=== PATIENT | male | born 1955 | race Caucasian/White ===

== ENCOUNTER 2021-03-17 08:17 | Emergency (ER) | payer MEDICARE, SELFPAY ==
[2021-03-17 08:18] VITALS: BP 165/111; PULSE 97; RESP 20; TEMP 37; O2SAT 97; BMI 31.6
--- NOTE | 2021-03-17 08:28 | ECG_ITS ---
APPROVED REPORT Exam: Resting ECG HR:116 bpm ECG Measurements Heart Rate 116 AXES QRSd 70 QRS 19 QT 412 T -80 QTc 572 Conclusion Atrial fibrillation with rapid ventricular response with premature ventricular or aberrantly conducted complexes Nonspecific ST and T wave abnormality, probably digitalis effect Abnormal ECG Electronically signed by : Cornell Del Rio MD 03/18/2021 17:36:43
--- NOTE | 2021-03-17 08:29 | HMH.EDGENADL ---
ED Disposition Clinical Impression: Rapid atrial fibrillation Rotator cuff injury Qualifiers: Encounter type: sequela Laterality: left Qualified Code(s): S46.002S - Unspecified injury of muscle(s) and tendon(s) of the rotator cuff of left shoulder, sequela Disposition: Home, Self-Care Condition on Discharge: Good Instructions: How to Use a Sling, DI for Rotator Cuff Injury, DI for Atrial Fibrillation Additional Instructions: Wear sling until seen by orthopedics. Follow-up with orthopedics, Dr. Dickson, call for appointment. Woolford as needed for pain. Toprol-XL for control of your heart rate/atrial fibrillation. Follow-up with Dr. Blanco in the office, call for appointment. Additional instructions for CONTROLLED SUBSTANCES: You have been prescribed a medication that is a controlled substance. Controlled substances include pain medications known as opiates and sedative nerve medications known as benzodiazepines. Tramadol, fioricet, and gabapentin are also controlled substances. Some common opiates include: Codeine (such as Tylenol #3) Hydrocodone (Vicodin, Lortab, Lorcet, Woolford) Oxycodone (Percocet, Percodan, Oxycodone, Oxy IR) Some common benzodiazepines include: Diazepam (Valium) Lorazepam (Ativan) Alprazolam (Xanax) Clonazepam (Klonopin) Oxazepam (Serax) All of these controlled substances are highly addictive and frequently abused. Misuse can and frequently does lead to addiction as well as overdose and . Medication should be stored in a locked cabinet or other secure storage unit. Do not store the medication in a motor vehicle. Short term supplies, 3 days or less, are prescribed because of the highly addictive nature of the medication. Any of the controlled substance medication NOT taken should be disposed of properly and NOT SAVED. The recommended method of disposing of unused medications is: Place the medicines in a sealable plastic bag. If the medicine is a solid, crush it or add water to dissolve it. Add something undesirable (cat litter, coffee grounds, etc.) Dispose of sealed bag in household trash Do not flush or pour unused medicines down a sink or drain. Controlled substances should not be shared, given away or sold. Because of the addictive nature and frequent abuse, these medications are sometimes stolen. These medications should be kept in a safe place where they cannot be stolen. Do not keep them in your car or purse. Lost or stolen prescriptions for controlled substances WILL NOT BE REFILLED in this emergency department, regardless of whether a police report was filed. Prescriptions: Hydrocod/Acet 5/325 mg [Woolford 5/325mg tablet] 1 tab PO Q6HP PRN #10 tab PRN Reason: Pain Transmission Status: Received by [email or web address] Metoprolol Succinate [Toprol XL 25mg tablet] 25 mg PO HS #30 tab Transmission Status: Received by [email or web address] Referrals: Jeff Back MD [Primary Care Provider] - - Critical Care Critical Care Time: No Attestation: On , the high probability of a clinically significant, sudden or life threatening deterioration of the following system(s) required my full and direct attention, intervention and personal management. The time I documented below is in addition to time spent performing reported procedures but includes the following listed in this critical care notation. Medical Decision Making - Marciano Inquiry Pt receiving controlled substance: Yes Marciano was queried for this patient: Yes Risks and benefits of using a controlled substance: were discussed with pt by me Vital Signs: 03/17/21 08:18 03/17/21 08:50 03/17/21 09:15 Temperature 98.6 F Temperature Source Oral Pulse Rate 90 82 Pulse Rate [Right] 97 H Respiratory Rate 20 21 19 Blood Pressure 164/102 H 123/87 Blood Pressure [Right Radial Artery] 165/111 H Blood Pressure Mean [Right Radial Artery] 129 02 Sat by Pulse Oximetry 97 98 96 O
--- NOTE | 2021-03-17 08:43 | XR_ITS ---
PROCEDURE INFORMATION: Exam: XR Left Shoulder Exam date and time: 03/17/2021 8:43 AM Age: 65 years old Clinical indication: Pain; Shoulder; Left TECHNIQUE: Imaging protocol: XR Left shoulder. Views: 2 or more views. COMPARISON: CR XR CHEST 2V 03/17/2021 8:54 AM FINDINGS: Bones/joints: Visualized portions of the clavicle normal. Moderate degenerative changes of the acromioclavicular joint. Glenohumeral joint normal; Scapula normal; Visualized ribs and visualized pulmonary parenchyma normal; Coracoid process normal Soft tissues: Normal. IMPRESSION: Moderate degenerative changes of the acromioclavicular joint. Question mild loss of the subacromial space height. Correlate clinically regarding rotator cuff pathology.
--- NOTE | 2021-03-17 08:44 | XR_ITS ---
PROCEDURE INFORMATION: Exam: XR Chest Exam date and time: 03/17/2021 8:44 AM Age: 65 years old Clinical indication: Pain; Other: A fib; Additional info: Rapid afib TECHNIQUE: Imaging protocol: XR of the chest. Views: 2 views. COMPARISON: CR CXR1 CHEST-PORTABLE 05/21/2015 11:34 AM FINDINGS: Lungs: Question minimal basilar atelectasis. Lungs are otherwise well aerated. Pleural spaces: Unremarkable. No pleural effusion. No pneumothorax. Heart/Mediastinum: Unremarkable. No cardiomegaly. Bones/joints: Unremarkable. IMPRESSION: Question minimal basilar atelectasis. Lungs are otherwise well aerated.
[2021-03-17 08:50] VITALS: BP 164/102; PULSE 90; RESP 21; O2SAT 98
[2021-03-17 08:59] LABS: Basophils # 0.1 K/mm3 (0-0.2); Basophils % 0.6 % (0.1-2.0); Eosinophils # 0.2 K/mm3 (0.0-0.4); Eosinophils % 1.7 % (0.1-12.0); Hematocrit 50.2 % (42.0-52.0); Hemoglobin 16.6 g/dL (14.1-18.0); Lymphocytes # 1.7 K/mm3 (0.7-4.5); Lymphocytes % 17.4 % (10-50); Mean Corpuscular Hemoglobin 30.2 pg (27.0-31.2); Mean Corpuscular Volume 91.6 fl (80-94); Mean Platelet Volume 8.6 fl (7.4-10.4); Monocytes # 0.7 K/mm3 (0.1-1.0); Monocytes % 7.6 % (1.7-9.3); Neutrophils % 72.6 % (37.0-80.0); Platelet Count 303 K/mm3 (142-424); Red Blood Count 5.48 M/mm3 (4.60-6.20); Red Cell Distribution Width 13.9 % (11.5-17.5); White Blood Count 9.6 K/mm3 (4.8-10.8)
[2021-03-17 09:02] LABS: Chloride 102 mmol/L (98-107); Potassium 4.2 mmoL/L (3.5-5.1); Sodium 137 mmol/L (136-145)
[2021-03-17 09:05] LABS: Blood Urea Nitrogen 15 mg/dl (9-20); Creatinine Clearance Estimated 112 mL/min (50-200); Estimated Glomerular Filt Rate 75 ml/min (>60); GFR (African American) 90 ML/MIN (>60)
[2021-03-17 09:06] LABS: Anion Gap 14.2 mEq/L (5-15); Calcium 9.2 mg/dl (8.4-10.2); Carbon Dioxide 25 mmol/L (22.0-30.0); Glucose 116 mg/dl (74-100)
[2021-03-17 09:15] VITALS: BP 123/87; PULSE 82; RESP 19; O2SAT 96
[2021-03-17 09:19] LABS: Troponin I < 0.01 ng/ml (0.00-0.034)
--- NOTE | 2021-03-17 09:40 | PC.NURSE ---
Called [facility] exchange to speak to Dr Barnes. They are paging him to call [facility] ER
[2021-03-17 10:05] VITALS: BP 126/81; PULSE 75; RESP 18; O2SAT 96
--- NOTE | 2021-03-17 10:06 | PC.NURSE ---
Dr Plaza is consulting with Dr Barnes by phone
[2021-03-17 10:46] VITALS: BP 144/91; PULSE 81; RESP 20; TEMP 37; O2SAT 95
== END 2021-03-17 10:49 | disposition home or self-care (01) ==
PROVIDERS: Emergency Provider Emergency Medicine; PCP Family Medicine
DX: S46.002A Unspecified injury of muscle(s) and tendon(s) of the rotator cuff of left shoulder, initial encounter (principal); I48.20 Chronic atrial fibrillation, unspecified; R00.2 Palpitations; Z96.641 Presence of right artificial hip joint; Z79.899 Other long term (current) drug therapy
CPT/HCPCS: 71046; 73030; 80048; 84484; 85025; 93005; 96374; 96375; 99283; J2405

== ENCOUNTER 2023-09-27 14:25 | Outpatient (CLI) | payer MEDICARE, SELFPAY ==
--- NOTE | 2023-09-27 | CA_ITS ---
FINAL REPORT TECHNIQUE: Color Doppler, duplex Doppler and saeed scale sonography of the bilateral neck arterial vasculature was performed. Velocities were measured in the carotid arteries. Stenosis evaluation based on the validated velocity criteria. CLINICAL HISTORY: ATRIAL FIBRILLATION, TINNITUS COMPARISON: None FINDINGS: The peak systolic velocity of the right common carotid artery is 77 cm/s. The peak systolic velocity of the right internal carotid artery is 63 cm/s and end diastolic velocity 24 cm/s. The ICA/CCA ratio is 1.03. A mild amount of plaque is present. The right external carotid artery is patent. The right vertebral artery is patent with antegrade flow. The peak systolic velocity of the left common carotid artery is 61 cm/s. The peak systolic velocity of the left internal carotid artery is 65 cm/s and end diastolic velocity 22 cm/s. The ICA/CCA ratio is 1.07. A mild amount of plaque is present. The left external carotid artery is patent.The left vertebral artery is patent with antegrade flow. IMPRESSION: Less than 50% bilateral carotid stenoses. Bilateral patent vertebral arteries with antegrade flow. If indicated, CTA or MRA could further evaluate. Reviewed, Interpreted and Dictated by Oumar Galvin III, MD Transcribed by Mehreen Peres Authenticated and [facility]
== END 2023-09-27 23:59 ==
LOC: RT 14:25
PROVIDERS: PCP Family Medicine; Visit Provider Nurse Practitioner Family
DX: I48.91 Unspecified atrial fibrillation (principal); H93.19 Tinnitus, unspecified ear; I65.23 Occlusion and stenosis of bilateral carotid arteries
CPT/HCPCS: 93880

== ENCOUNTER → 2024-02-16 07:15 | Day surgery (SDC) | payer MEDICARE, SELFPAY ==
[2024-02-13 16:15] VITALS: BMI 31.6
[2024-02-16] VITALS (7 sets, daily range): BP systolic 108–148; BP diastolic 61–101; PULSE 60–104; RESP 16–18; TEMP 36.3–36.4; O2SAT 95–99
[2024-02-16] MEDS: LACTATED RINGERS 1000ML 1,000 ML 25 ML IV (07:41)
--- NOTE | 2024-02-16 08:11 | EXP.ANES.CKL ---
[facility] Disclaimer: The information contained in this section may have been updated after the patient was seen, as this information can be updated by other users. Medical History (Updated 02/16/24 @ 07:33 by Aretha Zarate RN) History of cardioversion Atrial fibrillation Hyperlipidemia Hypertension Surgical History (Updated 02/16/24 @ 07:44 by Aretha Zarate RN) H/O cardiac radiofrequency ablation History of hernia repair History of colonoscopy S/P ACL repair History of left hip replacement Family History Other No significant family history Social History Smoking Status: Never smoker alcohol intake: never substance use type: denies use current occupational status: employed and retired Travel in the last 8 weeks: None [facility] Anesthesia Checklist Patient Identification Patient Identification: Arm Band, Family and Verbal (Name & ) Structural Data Admitted From: Home Planned Operative Procedure/s: Colonoscopy Consent for Planned Operative Procedure(s) Verified: Yes Verified Documents: Surgical Consent and History and Physical NPO Status Verified Time NPO: 20:00 Chart Verification Results Verified: CBC, BMP, ECG and Chest Xray Additional verifications Patient : No Anesthesia Reactions: No Previous Colonoscopy: Yes Cardiovascular Assessment Pulse Rhythm: Irregular Peripheral Edema: No Airway Assessment Mallampati Score:: Class II C-Spine Mobility Assessed: Yes (FROM) TMJ Mobility Assessed: Yes Dentition: Good Dentition (Nothing loose per pt.) Neurological Assessment Level of Consciousness: Awake, Alert, Appropriate and Follows Commands Hx Seizures: No Numbness or tingling in extremities: No Anesthesia Plan Anesthesia Risk discussed: Yes Anesthesia Plan: Verified ASA Class: III Anesthesia Type: MAC
--- NOTE | 2024-02-16 09:17 | P.PCN_ITS ---
Procedure: Date: 02/16/24 Patient Date of :: 1955 Procedure Performed:: Total colonoscopy to ileocecal valve with multiple polypectomy using a variety of technique . Indications:: Patient is a 68-year-old male. He apparently had previously undergone colonoscopy sometime ago. Exact details are unknown. He had recent Cologuard testing which was positive. . Performing Provider:: Oumar Hernandez MD Referring Provider:: Keven Walker MD . Sedation:: MAC sedation . Procedure:: Patient history was obtained and appropriate physical examination was performed. Patient's medications and allergies were reviewed. Informed consent was obtained after explaining the benefits, alternatives, and risks of the procedure including, but not limited to, bleeding, perforation, missed lesions, and adverse reaction to anesthesia medications. Patient was transported to endoscopy procedure room. Patient was connected to monitoring devices. Throughout the procedure the patient's blood pressure, pulse, and oxygen saturations were monitored continuously. Patient identification and planned procedure were verified by the staff. Patient was positioned in lateral decubitus position. Digital anorectal exam wa s performed. Variable stiffness Olympus colonoscope was inserted and advanced under direct visualization to the cecum. Adequacy of the colonic preparation was noted. The colonoscope was advanced a short distance into the ileocecal valve. The colonoscope was then slowly withdrawn while carefully examining the color, texture, anatomy, and integrity of the mucosoa circumferentially. Within the rectum retroflexion was performed. Colonoscope was then withdrawn. . Impression: Colonic preparation was fair as there was some particulate opaque stool requiring high-volume trans colonoscopic irrigation and suctioning. There was some stool adherent to the álvarez. In the ascending colon just distal to the hepatic flexure there was an adenomatous appearing polyp removed with cold snare. At the hepatic flexure there was a small polyp removed with cold snare. Transverse colon there was a sessile small polyp removed with cold snare. Splenic flexure there was a sessile small polyp removed with cold snare. In the descending colon there was a polyp removed with cold snare. In the sigmoid colon there were 4 polyps removed 3 of which were removed with cold snare and 1 with biopsy forceps. In the rectosigmoid region there was a rather large irregular adenomatous appearing polyp removed with hot snare. This required withdrawal of the colonoscope for retrieval. Tissue at the base of the polyp was removed with cold biopsy forceps. Limited amount of Nicki ink was injected at the polypectomy site to eileen this area. Within the rectum there was an adenomatous polyp removed with cold snare. There was another large rectal polyp removed with hot snare. This required withdrawal of the colonoscope for retrieval and then reinsertion. Retroflexion revealed no evidence of any pathologic hemorrhoids. . Findings:: Suboptimal prep Polyps as noted above. Total of 12 polyps removed. Most concerning is the rectosigmoid and rectal polyps removed with hot snare. . Recommendations:: Follow-up colonoscopy pending pathology. However given the likely large number of adenomatous polyps and suboptimal prep likely 1 or 2 years. Complications:: None immediately apparent Estimated blood obtained (mL): 2 Colonoscopy Component Colonoscopy Component Was a colonoscopy performed during today's procedure?: Yes Recommended follow up colonoscopy of at least 10 years?: No If no, follow up colonoscopy recommended in ___ years?: 2 Reason for not recommending >/= 10 yr follow-up interval?: See above
--- NOTE | 2024-02-16 09:25 | EXP.ANES.I ---
[facility] Anesthesia Record Part I Anesthesia Record I Intake, IV Amount: 300 Hydration: Adequate Estimated blood loss (mL): 1 Urine output (mL): 0 Blood Products used (#): none Blood Pressure: 108/62 SaO2: 95 Pulse Rate: 104 Airway Patency: Patent Respiratory Rate: 16 Temperature: 97.4 F Patient is:: Drowsy and Stable Stable to PACU at:: 09:25
--- NOTE | 2024-02-16 10:20 | SUR.PHASEII ---
0942 Assisting with dressing pt and noted that pt could barely stand. Sat pt in W/C, noted that wasn't using right arm. Performed neurological assessment. Noted Slight R mouth droop, weakness on R side, pupils round and reactive. Pt unable to answer any questions, only says yeah and giggles. 118/84, 78, 20,98% RA. 0985 Updated Tj Tai [employer] of changes and wants pt to ER. 0940 Pt already in W/C and took to ER and immediately taken into [facility] with report given to ER staff. at pt's side.
--- NOTE | 2024-02-16 11:46 | P.EN_ITS ---
According to the nursing staff in the postoperative area patient reportedly displayed signs consistent with possible left hemispheric stroke. He was therefore taken immediately to the emergency department for evaluation. He underwent thorough examination including CT head and neck with angiogram. There was concern from ER physician for possible left MCA branch thrombosis. Therefore arrangements were made for immediate transfer to [facility] via air ambulance for possible thrombectomy. Evidently, based on discussion and documentation by office staff, the patient had discontinued his Xarelto as well as his 81 mg aspirin without advice/input from his washer off or surgery office staff.
== END | disposition home or self-care (01) ==
PROVIDERS: PCP Family Medicine; Visit Provider Surgery
PROC: 0DJD8ZZ Inspection of Lower Intestinal Tract, Via Natural or Artificial Opening Endoscopic (ICD-10-PCS; principal; 2024-02-16 08:30)
DX: Z12.11 Encounter for screening for malignant neoplasm of colon (principal)
CPT/HCPCS: J2704; J7120

== ENCOUNTER 2024-02-16 10:03 | Emergency (ER) | payer MEDICARE, SELFPAY ==
--- NOTE | 2024-02-16 10:07 | PC.NURSE ---
DR TAM AT BEDSIDE
--- NOTE | 2024-02-16 10:08 | ECG_ITS ---
APPROVED REPORT Exam: Resting ECG HR:87 bpm ECG Measurements Heart Rate 87 AXES QRSd 94 QRS -51 QT 375 T 131 QTc 420 Conclusion A-fib Nonspecific T wave inversions Left axis deviation Electronically signed by : ISIAH TAM, 02/17/2024 15:20:59
--- NOTE | 2024-02-16 10:10 | CT_ITS ---
FINAL REPORT CLINICAL HISTORY: Right-sided deficits, HSS 13 FINDINGS: CT NECK ANGIO, WITHOUT AND WITH CONTRAST TECHNIQUE: Thin section axial CT with contrast with multiplanar 3D MIP reconstruction. NASCET criteria and technique was utilized during interpretation. Aortic arch: Arch shows no significant narrowing. Great vessel origins are widely patent. Right carotid: No significant stenosis is seen of the cervical common or internal carotid artery. Left carotid: No significant stenosis is seen of the cervical common or internal carotid artery. Vertebrals: The vertebral arteries are codominant. No significant stenosis is present. IMPRESSION: No significant stenosis of the cervical carotid arteries This study was performed using automated techniques to achieve radiation exposure as low as reasonably Reviewed, Interpreted and Dictated by Marcela Johnson MD Transcribed by Ayla Reynaga Authenticated and [facility]
--- NOTE | 2024-02-16 10:10 | CT_ITS ---
FINAL REPORT TECHNIQUE: Noncontrast exam This study was performed with techniques to keep radiation doses as low as reasonably achievable, (ALARA). Individualized dose reduction techniques using automated exposure control or adjustment of mA and/or kV according to the patient''s size were employed. CLINICAL HISTORY: Right-sided deficits, NIHSS 13 FINDINGS: Hypointensity in the posterior right temporal lobe is nonspecific, could represent chronic infarct or an area of edema. This would not correlate with a right sided neurologic deficit. Minimal chronic microvascular changes are identified. Ventricles are normal. There is no hemorrhage. No mass effect is seen. Bone windows show no evidence of fracture. IMPRESSION: No hemorrhage. 13 mm hypodensity right posterior temporal lobe, recommend further evaluation with MRI. Reviewed, Interpreted and Dictated by Marcela Johnson MD Transcribed by Ayla Reynaga Authenticated and . [facility]
--- NOTE | 2024-02-16 10:10 | CT_ITS ---
FINAL REPORT CLINICAL HISTORY: Right-sided deficits, NIHSS 13 FINDINGS: CTA HEAD TECHNIQUE: Thin section axial CT with contrast with 3D MIP reconstruction No aneurysm is seen. Major intracranial vessels are patent without significant stenosis. . IMPRESSION: Unremarkable This study was performed using automated techniques to achieve radiation exposure as low as reasonably achievable Reviewed, Interpreted and Dictated by Marcela Johnson MD Transcribed by Ayla Reynaga Authenticated and . [facility]
[2024-02-16 10:13] VITALS: PULSE 58; O2SAT 98
[2024-02-16 10:22] VITALS: BP 138/89; PULSE 82; RESP 20; TEMP 36.8; O2SAT 99; BMI 30.5
[2024-02-16 10:24] LABS: Basophils # 0.1 K/mm3 (0-0.2); Eosinophils # 0.1 K/mm3 (0.0-0.4); Eosinophils % 1.5 % (0.1-12.0); Hematocrit 51.3 % (42.0-52.0); Hemoglobin 17.1 g/dL (14.1-18.0); Lymphocytes # 1.2 K/mm3 (0.7-4.5); Lymphocytes % 13.9 % (10-50); Mean Corpuscular HGB Conc 33.3 g/dL (31.8-35.4); Mean Corpuscular Hemoglobin 31.5 pg (27.0-31.2); Mean Corpuscular Volume 94.5 fl (80-94); Monocytes # 0.5 K/mm3 (0.1-1.0); Monocytes % 5.3 % (1.7-9.3); Neutrophils # 6.8 K/mm3 (1.8-7.8); Neutrophils % 78.3 % (37.0-80.0); Platelet Count 293 K/mm3 (142-424); Red Blood Count 5.43 M/mm3 (4.60-6.20); White Blood Count 8.7 K/mm3 (4.8-10.8)
--- NOTE | 2024-02-16 10:24 | ED_ITS ---
Discharge Plan Disposition Patient Disposition: Xfer Short-Term Hosp Chief Complaint: Neuro Symptoms/Deficit Prescriptions Prescriptions: No Action Xarelto 20 mg tablet 20 mg PO DAILY Rx Instructions: must administer with evening meal diltiazem HCl 240 mg capsule,extended release 24 hr 240 mg PO DAILY aspirin 81 mg Tablet 81 mg PO DAILY Referrals Follow up/Referrals: Provider,Bernice, [Primary Care Provider] - See instructions Clinical Impressions Clinical Impression: Acute ischemic left MCA stroke Print Language Print Language: Ukrainian Discharge ED Provider: Mario Raines General Adult HPI General Stated complaint: STROKE LIKE SYMPTOMS Time Seen by Provider: 02/16/24 10:10 History of Present Illness HPI narrative: Please note that above description of symptoms, in this electronic medical record under categorization of recalled from ER triage doctor by RN are reflective of an initial nursing assessment, however, is not reflective of my full history and physical exam that was personally taken and clarified. Consequentially, this preceding description of symptoms, which may include the patient's categorized chief complaint in the EMR, do not reflect my personal clinical impression, and the ultimate description of history of present illness and patient stated complaints should be deferred to this section of the note. Unless stated otherwise or congruent with this section of the note, additional signs, symptoms, or incongruence should be interpreted as inaccurate with my clinical impression. Related Data Home Medications ?Medication ?Instructions ?Recorded ?Confirmed diltiazem HCl 240 mg capsule,24 240 mg PO DAILY 02/14/20 02/16/24 hr,extended release rivaroxaban 20 mg tablet (Xarelto) 20 mg PO DAILY 02/14/20 02/16/24 aspirin 81 mg tablet 81 mg PO DAILY 02/16/24 02/16/24 Allergies Allergy/AdvReac Type Severity Reaction Status Date / Time No Known Allergies Allergy Mild Verified 02/13/24 16:13 [NO KNOWN ALLERGIES] [facility] Disclaimer: The information contained in this section may have been updated after the patient was seen, as this information can be updated by other users. Medical History (Updated 02/16/24 @ 10:48 by Mario Raines MD) History of cardioversion Atrial fibrillation Hyperlipidemia Hypertension Surgical History (Updated 02/16/24 @ 07:44 by Arehta Zarate RN) H/O cardiac radiofrequency ablation History of hernia repair History of colonoscopy S/P ACL repair History of left hip replacement Family History Other No significant family history Social History (Updated 02/16/24 @ 08:12 by Amelia Tai CRNA) Smoking Status: Never smoker alcohol intake: never substance use type: denies use current occupational status: employed and retired Travel in the last 8 weeks: None ROS Obtained: Yes All systems reviewed & no additional complaints except as documented Physical Exam General General appearance: alert Head Head exam: atraumatic and normocephalic Eye Eye exam: Present normal appearance and PERRL; Absent EOMI (Right-sided gaze palsy, neglecting right visual field.) ENT ENT exam: Present mucous membranes moist Neck Neck exam: Present normal inspection, full ROM and trachea midline Respiratory Respiratory exam: Present normal lung sounds bilaterally; Absent respiratory distress, wheezes, stridor, accessory muscle use or prolonged expiratory phase Cardiovascular Cardiovascular exam: Present regular rate, irregular rhythm and other (Pulses equal symmetric in upper and lower extremities) Abdominal Exam Abdominal exam: Present soft; Absent distention, tenderness or pulsatile mass Extremities Exam Extremities exam: Absent edema Neurological Exam Neurological exam: Present alert, motor sensory deficit and other (Patient has NIH 17. Right-sided facial droop, right-sided gaze palsy and visual field cut, right upper extremity and right lower extremity weakness with drift cerebellar exam abnormal right extremities, extension, inattention, dysarthria and aphasia.); Absent oriented X3 (Dysarthric), CN II-XII intact or normal gait (Stumbles on right lower extremity) Skin Skin exam: Present warm and dry; Absent diaphoresis or erythema Medical Decision Making Medical Records Medical records reviewed: Yes I reviewed the patient's medical records. Marciano Inquiry Pt receiving controlled substance: No Marciano was queried for this patient: No Lab Data Lab Results 02/16/24 10:14: WBC 8.7, RBC 5.43, Hgb 17.1, Hct 51.3, MCV 94.5 H, MCH 31.5 H, MCHC 33.3, RDW 14.0, Plt Count 293, MPV 8.0, Neut % (Auto) 78.3, Lymph % (Auto) 13.9, Rooks % (Auto) 5.3, Eos % (Auto) 1.5, Baso % (Auto) 1.0, Neut # (Auto) 6.8, Lymph # (Auto) 1.2, Rooks # (Auto) 0.5, Eos # (Auto) 0.1, Baso # (Auto) 0.1, PT 10.8, INR 0.96, APTT 26.5, Sodium 136, Potassium 5.0, Chloride 105, Carbon Dioxide 28, Anion Gap 8.0, BUN 12, Creatinine 1.40 H, Estimated GFR 50 L, Est GFR ( Amer) 61, Glucose 116 H, Calcium 9.2, Total Bilirubin 0.8, AST 37, ALT 32, Alkaline Phosphatase 63, Total Protein 7.1, Albumin 4.3, Globulin 2.8, Albumin/Globulin Ratio 1.5, Triglycerides 149, Cholesterol 202 H, VLDL Cholesterol 30, HDL Cholesterol 53, Cholesterol/HDL Ratio 3.8 H 02/16/24 10:14 02/16/24 10:14 Orders (Tests/Meds): ED MEDICATIONS Generic Name Dose Route Start Last Admin Trade Name Freq PRN Reason Stop Dose Admin Sodium Chloride 10 ml 02/16/24 10:10 Sodium Chloride 0.9% 10ml Flush Syringe IV 03/17/24 10:09 NEEDED PRN Maintain IV Site Sodium Chloride 10 ml 02/16/24 10:25 02/16/24 10:27 Sodium Chloride 0.9% 10ml Syr (Rad Only) IV 03/17/24 10:24 10 ml NEEDED PRN Administration Maintain IV Site Discontinued Medications Generic Name Dose Route Start Last Admin Trade Name Freq PRN Reason Stop Dose Admin Iopamidol 100 ml 02/16/24 10:25 02/16/24 10:27 Iopamidol-370 (76%);100ml Bottle IV 02/16/24 10:26 100 ml ONCE ONE Administration Sodium Chloride 50 ml 02/16/24 10:25 02/16/24 10:26 0.9 % Sodium Chloride 50 Ml Vial IV 02/16/24 10:26 50 ml ONCE ONE Administration ORDERS Category Date Time Status CT angio head Stat Cat Scan 02/16/24 10:[address] angio neck Stat Cat Scan 02/16/24 10:[address] head/brain wo con Stat Cat Scan 02/16/24 10:10 Taken Activated Partial Thrombo Time Stat Lab 02/16/24 10:14 Completed Complete Blood Count Auto Diff Stat Lab 02/16/24 10:14 Completed Comprehensive Metabolic Panel Stat Lab 02/16/24 10:14 Results Drug Screen,Urine Stat Lab 02/16/24 10:10 Ordered Lipid Panel Stat Lab 02/16/24 10:14 Results Prothrombin Time INR Stat Lab 02/16/24 10:14 Completed Troponin I Q3H Lab 02/16/24 13:15 Ordered Troponin I Q3H Lab 02/16/24 16:15 Ordered Troponin I Stat Lab 02/16/24 10:14 Results Urinalysis and Microscopic Stat Lab 02/16/24 10:10 Ordered ECG Request Stat Y 02/16/24 10:10 Ordered Medical Decision Narrative: Is a 68-year-old male history of hypertension, hyperlipidemia, A-fib on Xarelto (held since Monday, 02/10 for colonoscopy) CAD on daily aspirin also held since 02/10, status post ablation presenting with strokelike symptoms. Patient was supposed have colonoscopy today, 02/15. Last night, states patient went to bed totally normal around 11 PM on 02/14. Today, patient's states that patient was quiet, appeared tired, but not exactly confused. She did not think anything of it, thought he was upset at having colonoscopy today. At hospital, unable to tell medical receptionist assistant what the procedure he was about to have done was. After procedure, thought it was due to anesthesia, but patient did not recover as was anticipated after propofol. Right-sided deficits, confusion, unable to speak in general, so was brought down to the emergency department. history obtained with patient's , family, hospital staff from anesthesia suite. On arrival, patient normotensive, nontachycardic, in A-fib, but rate controlled. Placed on continuous cardiac monitoring as well as continuous pulse oximetry with initial blood pressure 127/79, heart rate 52, oxygen 99% on room air. Patient has NIH 17. Right-sided facial droop, right-sided gaze palsy and visual field cut, right upper extremity and right lower extremity weakness with drift cerebellar exam abnormal right extremities, extension, inattention, dysarthria and aphasia. Patient appears frustrated. Cardiac exam without murmurs. Pulses are equal and symmetric. Lungs are clear to auscultation bilaterally. Fingerstick blood glucose 107. Independent rotation of EKG demonstrates atrial fibrillation with controlled rate about 87 beats a minute. QRS narrow at 94, QTc 420. Patient has intermittent PVCs. [place] appears normal, if not left leaning. Patient taken immediately to CT scan after line placed. On independent interpretation of CT a of the head and neck as well as CT head: Patient appears to have vascular occlusion and left middle cerebral artery distribution, likely M2 on independent interpretation. No intracranial hemorrhage on CT head. Because patient in thrombectomy window, [facility] was contacted and case was discussed at length, patient to be transferred for emergent thrombectomy. Family updated. Because patient high risk for clinical decompensation if discharged, deemed appropriate for transfer and inpatient admission. Results were relayed to patient who voiced understanding and patient was agreeable to transfer, inpatient admission, and management. Patient was graciously accepted and transferred to for further definitive management, under Dr. Reynolds. Field Map Editor disclaimer Much of this encounter note is an electronic flavor tank tender spoken language to printed text. Electronic flavor tank tender of the spoken language may permit errors. Although I have reviewed the note, some errors may still exist. Critical Care Critical Care Time Critical Care Time: Yes Attestation: On 02/16/24, the high probability of a clinically significant, sudden or life threatening deterioration of the following system(s) required my full and direct attention, intervention and personal management. The time I documented below is in addition to time spent performing reported procedures but includes the following listed in this critical care notation. Total Time Total Critical Care Time: 35
[2024-02-16] MEDS: 0.9 % SODIUM CHLORIDE 50 ML VIAL IV (10:26)
--- NOTE | 2024-02-16 10:26 | [facility].ITSTN ---
GFR completion/results were overrode for the use of contrast media by the Physician on a risk vs. benefit situation with this patient.
[2024-02-16 10:27] LABS: Chloride 105 mmol/L (98-107)
[2024-02-16] MEDS: IOPAMIDOL-370 (76%);100ML BOTTLE 100 ML IV (10:27)
[2024-02-16] MEDS: SODIUM CHLORIDE 0.9% 10ML SYR (RAD ONLY) 10 ML IV (10:27)
--- NOTE | 2024-02-16 10:27 | PC.NURSE ---
pt is at ct
[2024-02-16 10:28] LABS: Albumin Level 4.3 g/dl (3.5-5.0); Sodium 136 mmol/L (136-145)
[2024-02-16 10:31] VITALS: BP 127/79; PULSE 65; RESP 16; O2SAT 97
[2024-02-16 10:31] LABS: Alanine Aminotransferase 32 U/L (12-78); Albumin/Globulin Ratio 1.5 (1.1-1.8); Alkaline Phosphatase 63 U/L (38-126); Aspartate Amino Transferase 37 U/L (17-59); Bilirubin,Total 0.8 mg/dl (0.2-1.3); Blood Urea Nitrogen 12 mg/dl (9-20); Calcium 9.2 mg/dl (8.4-10.2); Carbon Dioxide 28 mmol/L (22.0-30.0); Cholesterol 202 mg/dl (140-200); Estimated Glomerular Filt Rate 50 ml/min (>60); GFR (African American) 61 ML/MIN (>60); Globulin 2.8 g/dL (1.3-3.2); Glucose 116 mg/dl (74-100); Total Protein,Serum 7.1 g/dl (6.3-8.2); Triglycerides 149 mg/dl (30-150); VLDL Cholesterol 30 mg/dL (0-40)
[2024-02-16 10:32] LABS: Chol/HDL Ratio 3.8 (1-3.5); HDL Cholesterol 53 mg/dl (40-60)
--- NOTE | 2024-02-16 10:32 | PC.NURSE ---
per VIZ, initiate transfer to [facility] called at this time for transfer
[2024-02-16 10:33] LABS: Activated Partial Thrombo Time 26.5 seconds (22.8-30.6); INR 0.96 (0.9-1.1); Prothrombin Time 10.8 seconds (10.1-12.5)
[2024-02-16 10:42] LABS: Direct LDL Cholesterol 103.78 mg/dL (100-129)
--- NOTE | 2024-02-16 10:44 | PC.NURSE ---
[facility] in route to ed for transport states they are 22 minutes out
[2024-02-16 10:52] LABS: Troponin I < 0.01 ng/ml (0.00-0.034)
--- NOTE | 2024-02-16 10:55 | PC.NURSE ---
report called to [facility] charge, Jarrett PATEL
[2024-02-16] MEDS: LACTATED RINGERS 1000ML 1,000 ML 999 ML IV (10:59)
--- NOTE | 2024-02-16 11:20 | PC.NURSE ---
[facility] at the bedside
[2024-02-16 11:28] VITALS: BP 131/80; PULSE 68; RESP 20; TEMP 36.8; O2SAT 97
--- NOTE | 2024-02-16 12:31 | ECG_ITS ---
APPROVED REPORT Exam: Resting ECG HR:82 bpm ECG Measurements Heart Rate 82 AXES WI 147 P 87 QRSd 89 QRS 96 QT 337 T 88 QTc 376 Conclusion SINUS RHYTHM WITH OCCASIONAL SUPRAVENTRICULAR PREMATURE COMPLEXES BORDERLINE RIGHT AXIS DEVIATION [QRS AXIS > 90] POSSIBLE RIGHT VENTRICULAR CONDUCTION DELAY [RSR (QR) IN V1/V2] MODERATE ST DEPRESSION [0.05+ mV ST DEPRESSION] ABNORMAL ECG Electronically signed by : CATHI MORGAN, 02/16/2024 23:49:54
== END 2024-02-16 11:29 | disposition short-term general hospital (02) ==
PROVIDERS: Emergency Provider Emergency Medicine
DX: G81.94 Hemiplegia, unspecified affecting left nondominant side (principal); H53.9 Unspecified visual disturbance; R29.810 Facial weakness; G81.93 Hemiplegia, unspecified affecting right nondominant side; D12.7 Benign neoplasm of rectosigmoid junction; D12.4 Benign neoplasm of descending colon; D12.3 Benign neoplasm of transverse colon; Z12.11 Encounter for screening for malignant neoplasm of colon; I48.91 Unspecified atrial fibrillation; I10 Essential (primary) hypertension; E78.5 Hyperlipidemia, unspecified; I25.10 Atherosclerotic heart disease of native coronary artery without angina pectoris
CPT/HCPCS: 45381; 45385; 70450; 70496; 70498; 80053; 80061; 84484; 85025; 85610; 85730; 93005; 99291; J2704; J7120; Q9967